=== PATIENT | male | born 1980 | race Caucasian/White ===

== ENCOUNTER 2017-11-22 14:23 | Emergency (ER) | payer OTHER ==
[2017-11-22 14:37] VITALS: BP 137/90
--- NOTE | 2017-11-22 15:15 | UC ---
Dale Harrison Stephanie, scribed for Noe Dutta MD on 11/22/17 at 1459 . Head Injury HPI - HPI Summary HPI Summary: The pt is a 37 y/o M presenting to with c/o head trauma that occured on . Symptoms include WELCH (since one day prior to fall), neck soreness, difficulty focusing, and sensitivity with black and white contrast. The pt denies LOC, blurred vision and slurred speech. The pt has a hx of WELCH. The pt denies LE and UE movement difficulties. - History Of Current Complaint Chief Complaint: UCHeadInjury Stated Complaint: HEAD INJURY Time Seen by Provider: 11/22/17 14:54 Hx Obtained From: Patient Onset/Duration: Sudden Onset, Lasting Days - 2, Still Present Severity Currently: Mild Pain Intensity: 3 Pain Scale Used: 0-10 Numeric Character: Dull Aggravating Factor(s): Nothing Alleviating Factor(s): Nothing Associated Signs And Symptoms: Positive: Neck Pain - Allergies/Home Medications Allergies/Adverse Reactions: Allergies Allergy/AdvReac Type Severity Reaction Status Date / Time No Known Allergies Allergy Verified 11/22/17 14:40 PMH/Surg Hx/FS Hx/Imm Hx Neurological History: Migraine - Surgical History Surgical History: None - Family History Known Family History: Positive: Cardiac Disease, Diabetes, Other - hypothyroidism - Social History Occupation: Employed Full-time Lives: With Family Alcohol Use: None Substance Use Type: None Smoking Status (MU): Never Smoked Tobacco Review of Systems Constitutional: Other - Negative: LOC Skin: Negative Eyes: Other - sensitivity to black and white contrast ENT: Other - posterior neck pain Respiratory: Negative Cardiovascular: Negative Gastrointestinal: Negative Genitourinary: Negative Motor: Negative Neurovascular: Negative Musculoskeletal: Negative Neurological: Headache, Other - dificulty focusing Psychological: Negative All Other Systems Reviewed And Are Negative: Yes Physical Exam Triage Information Reviewed: Yes Vital Signs: Initial Vital Signs Temp 98.7 F 11/22/17 14:31 Pulse 96 11/22/17 14:31 Resp 18 11/22/17 14:31 BP 137/90 11/22/17 14:31 Pulse Ox 100 11/22/17 14:31 Vital Signs Reviewed: Yes - Additional Comments General: well-appearing, no pain distress Skin: warm, color reflects adequate perfusion, dry Head: normal Eyes: EOMI, ARNAV ENT: normal Neck: supple, nontender Respiratory: CTA, breath sounds present Cardiovascular: RRR Abdomen: soft, nontender Bowel: present Musculoskeletal: normal, strength/ROM intact Neurological: normal, sensory/motor intact, A&O x3 Psychological: affect/mood appropriate Head Injury Course/Dx - Course Course Of Treatment: DISCUSSED SIGNS AND SX OF CONCUSION WITH THE PATIENT. NO LOC. WELCH IS MILD. THE WELCH STARTED THE DAY PRIOR TO THE HEAD INJURY. NORMAL EXAM IN CLINIC. DISCUSSED HEAD CT/GOING TO THE ED TO EVALUATE FOR POSSIBLE BLEED. WITH MILD SX AT THIS TIME WE WILL NOT REQUIRE A HEAD CT. CANDIDO WILL MONITOR HIS SX AND GO TO THE ED IF HIS SX WORSEN OR HE HAS ANY OTHER CONCERNS. - Differential Dx/Diagnosis Provider Diagnoses: CONCUSSION Discharge - Discharge Plan Condition: Stable Disposition: HOME Patient Education Materials: Concussion (ED) Referrals: [facility] [place] [facility] [Outside] Additional Instructions: FOLLOW UP WITH YOUR DOCTOR. GO TO THE EMERGENCY DEPARTMENT FOR ANY WORSENING OF YOUR CONDITION; WEAKNESS, NUMBNESS, VISION OR SPEECH CHANGES, YOU FEEL ILL, PAIN OR QUESTIONS OR CONCERNS. YOUR BLOOD PRESSURE WAS ELEVATED DURING TODAY'S VISIT; FOLLOW UP WITH YOUR PCP WITHIN ONE WEEK FOR FURTHER EVALUATION. The documentation as recorded by the Dale willett Stephanie accurately reflects the service I personally performed and the decisions made by me, Noe Dutta MD.
== END 2017-11-22 15:21 | disposition home or self-care (01) ==
LOC: UCEAST 14:23
DX: S06.0X9A Concussion with loss of consciousness of unspecified duration, initial encounter (principal); X58.XXXA Exposure to other specified factors, initial encounter; Y92.9 Unspecified place or not applicable

== ENCOUNTER 2017-11-26 09:40 | Emergency (ER) | payer OTHER ==
[2017-11-26 10:01] VITALS: BP 120/82
--- NOTE | 2017-11-26 10:05 | UC ---
Head Injury HPI - HPI Summary HPI Summary: fell and hit head 6 days ago--has continued concussion sx is concerned because he was told to return to ed if symptoms continued for a ct scan-- (?) patient admits to being anxious about this patient patient reports decreaing his activity and screen time but is going to work -patient was able to drive her, reports no memory issues - History Of Current Complaint Chief Complaint: UCHeadInjury Stated Complaint: RECHECK HEAD INJURY Time Seen by Provider: 11/26/17 10:04 Hx Obtained From: Patient Mechanism Of Injury: fall and hit head 6 days ago Onset/Duration: Sudden Onset, Lasting Days - 6, Still Present Severity Currently: Mild Severity Initially: Mild Pain Intensity: 3 Aggravating Factor(s): Nothing Alleviating Factor(s): Nothing Associated Signs And Symptoms: Positive: Negative - Allergies/Home Medications Allergies/Adverse Reactions: Allergies Allergy/AdvReac Type Severity Reaction Status Date / Time No Known Allergies Allergy Verified 11/26/17 09:58 PMH/Surg Hx/FS Hx/Imm Hx Previously Healthy: No Psychological History: Other - OCD, Tourettes Other Psychological History: Tourettes, OCD - Surgical History Surgical History: None - Family History Known Family History: Positive: Cardiac Disease, Diabetes, Other - hypothyroidism - Social History Occupation: Employed Full-time Lives: With Family Alcohol Use: None Substance Use Type: None Smoking Status (MU): Never Smoked Tobacco Review of Systems Constitutional: Negative Skin: Negative Eyes: Negative ENT: Negative Respiratory: Negative Cardiovascular: Negative Gastrointestinal: Negative Genitourinary: Negative Motor: Negative Neurovascular: Negative Musculoskeletal: Negative Neurological: Negative Psychological: Negative Is Patient Immunocompromised?: No All Other Systems Reviewed And Are Negative: Yes Physical Exam Triage Information Reviewed: Yes Appearance: Well-Appearing, No Pain Distress, Well-Nourished Vital Signs: Initial Vital Signs Temp 98.5 F 11/26/17 09:58 Pulse 92 11/26/17 09:58 Resp 15 11/26/17 09:58 BP 120/82 11/26/17 09:58 Pulse Ox 100 11/26/17 09:58 Vital Signs Reviewed: Yes Eye Exam: Normal Eyes: Positive: Conjunctiva Clear, Other: - perrla, eomi, no nystagmus ENT Exam: Normal ENT: Positive: Normal ENT inspection, Hearing grossly normal, Pharynx normal, TMs normal. Negative: Nasal congestion, Nasal drainage, TM bulging, TM dull, TM red, Trismus, Muffled voice, Hoarse voice, Dental tenderness, Sinus tenderness Dental Exam: Normal Neck exam: Normal Neck: Positive: Supple, Nontender, No Lymphadenopathy Respiratory Exam: Normal Respiratory: Positive: No respiratory distress, No accessory muscle use Cardiovascular Exam: Normal Cardiovascular: Positive: RRR, Pulses Normal, Brisk Capillary Refill Musculoskeletal Exam: Normal Musculoskeletal: Positive: Strength Intact, ROM Intact, No Edema Neurological Exam: Normal Neurological: Positive: Alert, Muscle Tone Normal Psychological Exam: Normal Skin Exam: Normal Diagnostics - Laboratory Diagnostic Studies Completed/Ordered: CT scan Normal Head Injury Course/Dx - Course Course Of Treatment: Reviewed TRINIDAD return to work plan with patient, Follow with Dr. Lundberg, - Differential Dx/Diagnosis Differential Diagnosis/HQI/PQRI: Concussion With LOC Provider Diagnoses: Concussion Discharge - Discharge Plan Condition: Stable Disposition: HOME Prescriptions: hydrOXYzine pamoate [Vistaril] 25 - 50 mg PO BEDTIME PRN #10 capsule PRN Reason: Insomnia Patient Education Materials: Acetaminophen (By mouth), Ibuprofen (By mouth), Concussion (ED), Post Concussion Syndrome (ED) Referrals: Eddie Graves MD [Primary Care Provider] - Lolis Lundberg MD [Medical Doctor] - 4 Days
--- NOTE | 2017-11-26 10:57 | RAD ---
Indication: Head injury. CT of the brain was performed without IV contrast. Ventricular structures are midline. No midline shift is noted. The extra-axial spaces are unremarkable. There is no evidence of intracranial mass or hemorrhage. No other high or low density lesions are identified. Mastoid air cells and paranasal sinuses are otherwise unremarkable. IMPRESSION: No intracranial mass or hemorrhage is noted.
== END 2017-11-26 11:26 | disposition home or self-care (01) ==
LOC: UCEAST 09:40
DX: S06.0X9D Concussion with loss of consciousness of unspecified duration, subsequent encounter (principal); X58.XXXD Exposure to other specified factors, subsequent encounter
CPT/HCPCS: 70450; 99212; G0463

== ENCOUNTER 2018-01-02 17:02 | Emergency (ER) | payer OTHER ==
[2018-01-02 17:21] VITALS: BP 120/80
--- NOTE | 2018-01-02 18:05 | UC ---
Eye Complaint HPI - HPI Summary HPI Summary: Patient states that for the past 5 days his eyes have been feeling dry and burning and the skin surrounding them has strange tingling sensation. He has consulted the eye clinic and was given artificial tear drops. He states he has some relief with them but disconcerted why light bothers him so much. He denies eye discharge, fever, or blurred vision. He also c/o several teeth aching; he states he has set up an appointment with dental. He has a history of not been able to sleep and chronic insomnia and anxiety, states he has tried medication, sleep hygiene and other methods but the more he thinks about it, the least he can fall asleep. He has been loosing sleep over this and is very anxious. - History of Current Complaint Chief Complaint: UCEye Stated Complaint: EYE PAIN, TEETH PAIN Time Seen by Provider: 01/02/18 17:31 Hx Obtained From: Patient Onset/Duration: Gradual Onset, Lasting Days Timing: Constant Severity Initially: Mild Severity Currently: Moderate Pain Intensity: 6 Aggravating Factor(s): Light, Ultraviolet Exposure Alleviating Factor(s): Darkness, Eye Drops Associated Signs And Symptoms: Positive: Photophobia - Risk Factors Penetrating Injury Risk Factor: Negative Globe Rupture Risk Factors: Negative Acute Glaucoma Risk Factors: Negative Optic Artery Occlusion Risk Factors: Negative - Allergies/Home Medications Allergies/Adverse Reactions: Allergies Allergy/AdvReac Type Severity Reaction Status Date / Time No Known Allergies Allergy Verified 01/02/18 17:20 Home Medications: Home Medications ALPRAZolam [Xanax] 2 tab PO DAILY 01/02/18 [History Confirmed 01/02/18] PMH/Surg Hx/FS Hx/Imm Hx Previously Healthy: Yes Psychological History: Anxiety - Surgical History Surgical History: None - Family History Known Family History: Positive: Cardiac Disease, Diabetes, Other - hypothyroidism - Social History Alcohol Use: None Substance Use Type: None Smoking Status (MU): Never Smoked Tobacco Review of Systems Constitutional: Negative Eyes: Photophobia All Other Systems Reviewed And Are Negative: Yes Physical Exam Triage Information Reviewed: Yes Appearance: Well-Appearing, No Pain Distress, Well-Nourished Vital Signs: Initial Vital Signs Temp 98.4 F 01/02/18 17:17 Pulse 76 01/02/18 17:17 Resp 16 01/02/18 17:17 BP 120/80 01/02/18 17:17 Pulse Ox 100 01/02/18 17:17 Vital Signs Reviewed: Yes Eyes: Positive: Conjunctiva Clear ENT: Positive: Hearing grossly normal, Pharynx normal, TMs normal, Uvula midline Dental Exam: Normal Neck: Positive: Supple, Nontender, No Lymphadenopathy Respiratory: Positive: Chest non-tender, Lungs clear, Normal breath sounds, No respiratory distress Cardiovascular: Positive: RRR, No Murmur, Pulses Normal, Brisk Capillary Refill Eye Complaint Course/Dx - Course Course Of Treatment: discussed symptoms with patient who will follow up with eye and dental clinics. What concerns him the most at this point is insomnia and the tingling sensation. D/w patient neurontin which in some provides some sedation and can aid with his paresthesia. - Differential Dx/Diagnosis Provider Diagnoses: Paresthesia. Dry eye. Dental pain Discharge - Sign-Out/Discharge Documenting (check all that apply): Discharge - Discharge Plan Condition: Stable Disposition: HOME Prescriptions: Gabapentin CAP(*) [Neurontin 100 mg CAP(*)] 300 mg PO BEDTIME #30 cap Patient Education Materials: Eye Lubricant (Into the eye), Paresthesia (ED), Insomnia (ED), Dry Eye Syndrome (ED) Referrals: Velma Hernadez MD [Primary Care Provider] - - Billing Disposition and Condition Condition: STABLE Disposition: HOME
== END 2018-01-02 18:29 | disposition home or self-care (01) ==
LOC: UCEAST 17:02
DX: R20.2 Paresthesia of skin (principal); H04.123 Dry eye syndrome of bilateral lacrimal glands; K08.89 Other specified disorders of teeth and supporting structures; F41.9 Anxiety disorder, unspecified
CPT/HCPCS: 99212; G0463

== ENCOUNTER 2018-01-16 06:16 | Emergency (ER) | payer OTHER ==
[2018-01-16] MEDS ORDERED: NS 0.9% 1000 ML* 2,000 ML IV ONE (07:31)
[2018-01-16 08:07] LABS: ABS Basophils 0 10^3/ul (0-0.2); ABS Eosinophils 0 10^3/ul (0-0.6); ABS Lymphocytes 0.7 10^3/ul (1.0-4.8); ABS Monocytes 0.5 10^3/ul (0-0.8); ABS Neutrophils 4.7 10^3/ul (1.5-7.7); ABS Nucleated RBC 0 10^3/ul; Eosinophil % 0.6 % (0-6); Hematocrit 40 % (42-52); Hemoglobin 13.9 g/dl (14.0-18.0); Lymphocyte % 11.9 % (25-47); Mean Corpuscular HGB Conc 35 g/dl (31-36); Mean Corpuscular Hemoglobin 30 pg (27-31); Mean Corpuscular Volume 86 fL (80-94); Mean Platelet Volume 10.5 um3 (7.4-10.4); Nucleated Red Blood Cells % 0; Platelet Count 166 10^3/ul (150-450); Red Blood Count 4.69 10^6/ul (4.0-5.4); Red Cell Distribution Width 14 % (10.5-15)
[2018-01-16 08:14] LABS: Urine Appearance Clear; Urine Blood Negative (Negative); Urine Color Yellow; Urine Ketones Negative (Negative); Urine Protein Negative (Negative); Urine Specific Gravity 1.004 (1.010-1.030); Urine Urobilinogen Negative (Negative)
[2018-01-16 08:19] LABS: INR 0.93 (0.77-1.02)
[2018-01-16 08:21] LABS: EGFR Non-African American 94.4 (>60)
[2018-01-16] MEDS ORDERED: Iohexol 300* (CONTRAST) 10 ML SDV IV ONE (09:18)
--- NOTE | 2018-01-16 09:32 | RAD ---
INDICATION: Lightheadedness after traumatic injury where the patient reportedly struck his right occiput and right cheek COMPARISON: CT of the brain dated November 26, [address] scan of the brain, maxillofacial bones and c-spine was performed without intravenous contrast enhancement. Contiguous axial sections were obtained from the lung apices through the vertex of the skull. BRAIN: The ventricles, cisterns and sulci are within normal limits. No significant focal abnormality or mass effect is seen. The avitia-white differentiation is adequately maintained. There is no evidence for intracranial hemorrhage. The calvarium is intact without radiographically apparent fracture. The mastoid air cells are appropriately aerated. FACIAL BONES: Bones: There is no displaced fracture or dislocation. The orbital rim is intact. The zygomatic arch is intact. The pterygoid plates are intact Orbits: The globes are round. The optic nerves are symmetric. The extraocular musculature is normal. There is no post septal or intraconal inflammatory change. There is no retrobulbar hematoma. Paranasal Sinuses: The paranasal sinuses are clear. C-SPINE: On the sagittal view images there is cortical discontinuity and slight posterior displacement of the posterior cortex of the C5 vertebral body. The vertebral body is otherwise intact indicating this is a chronic/congenital finding. The vertebral bodies and facet joints are otherwise appropriately aligned. There is no definite fracture or dislocation. The dens is intact. There is no atlantodental widening. There is no prevertebral soft tissue swelling. There is no hyperdense material in the cervical canal to indicate hemorrhage. The visualized musculature and soft tissues are normal. There is no gross lymphadenopathy visualized. The visualized portion of the lung apices are clear. IMPRESSION: 1. No calvarial fracture or acute intracranial hemorrhage. 2. No facial bone fractures. 3. No fracture or dislocation of the cervical spine.
--- NOTE | 2018-01-16 09:35 | RAD ---
CLINICAL HISTORY: 2 days of lower abdominal pain COMPARISON: None TECHNIQUE: Contrast enhanced CT examination of the abdomen and pelvis from the lung bases through the initial tuberosities. The patient received 91 mL Omnipaque 300 intravenously prior to imaging.The patient received oral contrast as well prior to imaging. FINDINGS: VISUALIZED LUNG BASES: The visualized lung bases are grossly clear. There is no pleural effusion. ABDOMEN AND PELVIS: The liver, spleen, pancreas and adrenal glands are grossly normal in appearance. The gallbladder is normal. The kidneys are normal in appearance without focal mass, calcification or signs of hydronephrosis. Neural contrast has progressed only as far as the distal small bowel which limits evaluation of the terminal ileum and colon. The small and large bowel are not distended. The patient's normal appendix is identified in the right lower quadrant measuring 6 mm in diameter (axial image 62 and coronal image 41). There is gas and stool throughout the length of the colon. There is no gross retroperitoneal or mesenteric lymphadenopathy. The pelvic viscera is normal in appearance. The abdominal aorta and iliac arteries are normal in course and diameter. There are no sinister bone lesions. IMPRESSION: Normal CT examination.
--- NOTE | 2018-01-16 10:25 | RAD ---
INDICATION: Intermittent testicular pain COMPARISON: Same day CT of the abdomen and pelvis TECHNIQUE: Duplex interrogation of the scrotum was performed. FINDINGS: The testicles are normal in size and echogenicity. There is no evidence for testicular mass. The right testis measures 4.3 x 2.9 x 2.6 cm and the left 4.4 x 2.3 x 2.9 cm. There is symmetric flow on Doppler interrogation. Arterial and venous waveforms are identified bilaterally. The epididymides appear normal. The right epididymal head measures 0.8 x 0.9 cm and the left 0.8 x 1.0 cm. There are no hydroceles. There are no varicoceles. IMPRESSION: Normal ultrasound of the scrotum.
[2018-01-16] MEDS ORDERED: Ketorolac INJ* 30 MG/ML 1 ML VIAL IV ONE (11:55)
[2018-01-16 12:06] VITALS: BP 116/71
--- NOTE | 2018-01-16 18:22 | ED ---
Kelsey Harrison Jason, scribed for Noe Dutta MD on 01/16/18 at 0720 . 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 He states that last night he took Trazodone for insomnia as well as Xanax at 0200 today, causing him to black out and fall. The patients includes I blacked out and woke up on the floor. My boyfriend said I hit the bathroom mat and not the tile. I have a concussion from 2 months ago so theres residual pain. The patient rates the pain 5/10 in severity. Symptoms aggravated by touch. Symptoms alleviated by nothing. Patient reports LLQ pain that is 6/10 in severity, left testicular pain, anxiety , Aching and cracking knees, and GERD. Patient denies diarrhea and double- vision. - History Of Current Complaint Chief Complaint: EDHeadInjury Stated Complaint: FALL, HEAD INJURY Time Seen by Provider: 01/16/18 07:10 Hx Obtained From: Patient Mechanism Of Injury: Fall From A Standing Position Pain Intensity: 5 Pain Scale Used: 0-10 Numeric Location of Head Injury: Occipital Character: Pressure Aggravating Factor(s): Other: - touch Associated Signs And Symptoms: Other: - Patient reports LLQ pain that is 6/10 in severity, left testicular pain, anxiety, Aching and cracking knees, and GERD. Patient denies diarrhea and double-vision. - Allergies/Home Medications Allergies/Adverse Reactions: Allergies Allergy/AdvReac Type Severity Reaction Status Date / Time No Known Allergies Allergy Verified 01/16/18 07:32 Home Medications: Home Medications Zolpidem Tartrate [Ambien] 5 mg PO BEDTIME PRN 01/16/18 [History Confirmed 01/16] diPHENhydraMINE PO* [Benadryl PO 25 MG TAB*] 25 mg PO BEDTIME PRN 01/16/18 [ History Confirmed 01/16/18] traZODone TAB* [Desyrel TAB*] 150 mg PO BEDTIME PRN 01/16/18 [History Confirmed 01/16/18] PMH/Surg Hx/FS Hx/Imm Hx Previously Healthy: No Endocrine/Hematology History: Denies: Hx Diabetes, Hx Thyroid Disease Cardiovascular History: Denies: Hx Hypertension Respiratory History: Denies: Hx Asthma, Hx Chronic Obstructive Pulmonary Disease (COPD) GI History: Reports: Hx Ulcer - gerd Infectious Disease History: No Infectious Disease History: Denies: Hx Clostridium Difficile, Hx Hepatitis, Hx Human Immunodeficiency Virus (HIV), Hx of Known/Suspected MRSA, Hx Shingles, Hx Tuberculosis, History Other Infectious Disease, Traveled Outside the [place] in Last 30 Days - Family History Known Family History: Positive: Cardiac Disease, Diabetes, Other - hypothyroidism - Social History Alcohol Use: None Substance Use Type: Reports: None Smoking Status (MU): Never Smoked Tobacco Review of Systems Eyes: Negative - double vision Positive: Abdominal Pain - LLQ, Other - GERD. Negative: Diarrhea Positive: other - left testicular pain Positive: Other - "Aching and cracking knees" Positive: Headache - occipital Positive: Anxious All Other Systems Reviewed And Are Negative: Yes Physical Exam - Summary Physical Exam Summary: General: well-appearing, no pain distress Skin: warm, color reflects adequate perfusion, dry Head: Tender in the occiput and Right zygomatic arch Eyes: EOMI, ARNAV ENT: normal Neck: supple, nontender Respiratory: CTA, breath sounds present Cardiovascular: RRR Abdomen: soft, Tender in LLQ, left inguinal Bowel: present Musculoskeletal: normal, strength/ROM intact Neurological: normal, sensory/motor intact, A&O x3, Psychological: affect mood appropriate Testicular exam: Normal, no tenderness to palpation. Triage Information Reviewed: Yes Vital Signs On Initial Exam: Initial Vitals Temp Pulse Resp BP Pulse Ox 97.4 F 82 16 105/60 99 01/16/18 06:20 01/16/18 06:20 01/16/18 06:20 01/16/18 06:20 01/16/18 06:20 Vital Signs Reviewed: Yes Diagnostics - Vital Signs Vital Signs Temp Pulse Resp BP Pulse Ox 01/16/18 06:20 97.4 F 82 16 105/60 99 - Laboratory Lab Results: Lab Results 01/16/18 01/16/18 01/16/18 Range/Units 07:48 07:48 07:48 WBC 6.0 (3.5-10.8) 10^3/ul RBC 4.69 (4.0-5.4) 10^6/ul Hgb 13.9 L (14.0-18.0) g/dl Hct 40 L (42-52) % MCV 86 (80-94) fL MCH 30 (27-31) pg MCHC 35 (31-36) g/dl RDW 14 (10.5-15) % Plt Count 166 (150-450) 10^3/ul MPV 10.5 H (7.4-10.4) um3 Neut % (Auto) 78.2 (38-83) % Lymph % (Auto) 11.9 L (25-47) % [place] % (Auto) 9.1 H (0-7) % Eos % (Auto) 0.6 (0-6) % Baso % (Auto) 0.2 (0-2) % Absolute Neuts (auto) 4.7 (1.5-7.7) 10^3/ul Absolute Lymphs (auto) 0.7 L (1.0-4.8) 10^3/ul Absolute Monos (auto) 0.5 (0-0.8) 10^3/ul Absolute Eos (auto) 0 (0-0.6) 10^3/ul Absolute Basos (auto) 0 (0-0.2) 10^3/ul Absolute Nucleated RBC 0 10^3/ul Nucleated RBC % 0 INR (Anticoag Therapy) 0.93 (0.77-1.02) APTT 28.4 (26.0-36.3) seconds Sodium 139 (139-145) mmol/L Potassium 4.1 (3.5-5.0) mmol/L Chloride 103 (101-111) mmol/L Carbon Dioxide 29 (22-32) mmol/L Anion Gap 7 (2-11) mmol/L BUN 8 (6-24) mg/dL Creatinine 0.90 (0.67-1.17) mg/dL Est GFR ( Amer) 121.5 (>60) Est GFR (Non-Af Amer) 94.4 (>60) BUN/Creatinine Ratio 8.9 (8-20) Glucose 104 H (70-100) mg/dL Lactic Acid (0.5-2.0) mmol/L Calcium 9.5 (8.6-10.3) mg/dL Magnesium 2.0 (1.9-2.7) mg/dL Total Bilirubin 0.30 (0.2-1.0) mg/dL AST 23 (13-39) U/L ALT 19 (7-52) U/L Alkaline Phosphatase 67 (34-104) U/L C-Reactive Protein 1.27 (< 5.00) mg/L Total Protein 7.1 (6.4-8.9) g/dL Albumin 4.2 (3.2-5.2) g/dL Globulin 2.9 (2-4) g/dL Albumin/Globulin Ratio 1.4 (1-3) Lipase 29 (11.0-82.0) U/L TSH 1.07 (0.34-5.60) mcIU/mL Urine Color Urine Appearance Urine pH (5-9) Ur Specific [place] (1.010-1.030) Urine Protein (Negative) Urine Ketones (Negative) Urine Blood (Negative) Urine Nitrate (Negative) Urine Bilirubin (Negative) Urine Urobilinogen (Negative) Ur Leukocyte Esterase (Negative) Urine Glucose (Negative) 01/16/18 01/16/18 Range/Units 07:48 08:04 WBC (3.5-10.8) 10^3/ul RBC (4.0-5.4) 10^6/ul Hgb (14.0-18.0) g/dl Hct (42-52) % MCV (80-94) fL MCH (27-31) pg MCHC (31-36) g/dl RDW (10.5-15) % Plt Count (150-450) 10^3/ul MPV (7.4-10.4) um3 Neut % (Auto) (38-83) % Lymph % (Auto) (25-47) % [place] % (Auto) (0-7) % Eos % (Auto) (0-6) % Baso % (Auto) (0-2) % Absolute Neuts (auto) (1.5-7.7) 10^3/ul Absolute Lymphs (auto) (1.0-4.8) 10^3/ul Absolute Monos (auto) (0-0.8) 10^3/ul Absolute Eos (auto) (0-0.6) 10^3/ul Absolute Basos (auto) (0-0.2) 10^3/ul Absolute Nucleated RBC 10^3/ul Nucleated RBC % INR (Anticoag Therapy) (0.77-1.02) APTT (26.0-36.3) seconds Sodium (139-145) mmol/L Potassium (3.5-5.0) mmol/L Chloride (101-111) mmol/L Carbon Dioxide (22-32) mmol/L Anion Gap (2-11) mmol/L BUN (6-24) mg/dL Creatinine (0.67-1.17) mg/dL Est GFR ( Amer) (>60) Est GFR (Non-Af Amer) (>60) BUN/Creatinine Ratio (8-20) Glucose (70-100) mg/dL Lactic Acid 1.4 (0.5-2.0) mmol/L Calcium (8.6-10.3) mg/dL Magnesium (1.9-2.7) mg/dL Total Bilirubin (0.2-1.0) mg/dL AST (13-39) U/L ALT (7-52) U/L Alkaline Phosphatase (34-104) U/L C-Reactive Protein (< 5.00) mg/L Total Protein (6.4-8.9) g/dL Albumin (3.2-5.2) g/dL Globulin (2-4) g/dL Albumin/Globulin Ratio (1-3) Lipase (11.0-82.0) U/L TSH (0.34-5.60) mcIU/mL Urine Color Yellow Urine Appearance Clear Urine pH 8.0 (5-9) Ur Specific [place] 1.004 L (1.010-1.030) Urine Protein Negative (Negative) Urine Ketones Negative (Negative) Urine Blood Negative (Negative) Urine Nitrate Negative (Negative) Urine Bilirubin Negative (Negative) Urine Urobilinogen Negative (Negative) Ur Leukocyte Esterase Negative (Negative) Urine Glucose Negative (Negative) Result Diagrams: 01/16/18 07:48 01/16/18 07:48 Lab Statement: Any lab studies that have been ordered have been reviewed, and results considered in the medical decision making process. - CT Maxillofacial CT CT Interpretation Completed By: Radiologist - Maxillofacial CT reveals, per radiologist, 1. No calvarial fracture or acute intracranial hemorrhage. 2. No facial bone fractures. 3. No fracture or dislocation of the cervical spine. ED physician has reviewed this radiology report. Cervical Spine CT CT Interpretation Completed By: Radiologist - Cervical spine CT reveals, per radiologist, 1. No calvarial fracture or acute intracranial hemorrhage. 2. No facial bone fractures. 3. No fracture or dislocation of the cervical spine. ED physician has reviewed this radiology. Brain CT CT Interpretation Completed By: Radiologist - Brain CT reveals, per radiologist , 1. No calvarial fracture or acute intracranial hemorrhage. 2. No facial bone fractures. 3. No fracture or dislocation of the cervical spine. ED physician has reviewed this radiology report Abdomen/Pelvis CT CT Interpretation Completed By: Radiologist - Abdomen/Pelvis CT reveals, per Radiologist, Normal CT examination. ED physician has reviewed this radiology report - Additional Comments Diagnostic Additional Comments: Testicular Ultrasound reveals, per radiologist, Normal ultrasound of the scrotum. ED physician has reviewed this radiology report Head Injury Course/Dx Course Of Treatment: Medications reviewed. Allergies noted. DISUSSED RESULTS WITH PATIENT AND HIS PARTNER. F/U PMD; RETURN IF WORSE. - Diagnoses Provider Diagnoses: Head injury, Abdominal pain, Scrotal pain Discharge - Sign-Out/Discharge Documenting (check all that apply): Discharge - Discharge Plan Condition: Stable Disposition: HOME Prescriptions: Ondansetron ODT TAB* [Zofran 4 MG Odt TAB*] 4 mg PO Q6H PRN #10 tab.odt PRN Reason: Nausea traMADol TAB* [Ultram*] 50 mg PO Q6HR PRN #20 tab MDD 4 PRN Reason: Pain Patient Education Materials: Head Injury (ED), Acute Abdominal Pain (ED), Scrotal Pain (ED) Referrals: Velma Hernadez MD [Primary Care Provider] - Additional Instructions: FOLLOW UP WITH YOUR DOCTOR. RETURN TO THE EMERGENCY DEPARTMENT FOR ANY WORSENING OF YOUR CONDITION OR QUESTIONS OR CONCERNS. - Billing Disposition and Condition Condition: STABLE Disposition: HOME The documentation as recorded by the Kelsey willett Jason accurately reflects the service I personally performed and the decisions made by me, Noe Dutta MD.
== END 2018-01-16 12:13 | disposition home or self-care (01) ==
LOC: ED 06:16
DX: S09.90XA Unspecified injury of head, initial encounter (principal); N50.82 Scrotal pain; R10.32 Left lower quadrant pain; K21.9 Gastro-esophageal reflux disease without esophagitis; W19.XXXA Unspecified fall, initial encounter; Y92.9 Unspecified place or not applicable; G47.00 Insomnia, unspecified; F41.9 Anxiety disorder, unspecified
CPT/HCPCS: 36415; 70450; 70486; 72125; 74177; 76870; 80053; 81003; 83605; 83690; 83735; 84443; 85025; 85610; 85730; 86140; 96360; 96374; 96375; 99283; J1885; Q9967